=== PATIENT | male | born 1970 | race Two or more races ===

== ENCOUNTER 2021-06-25 12:41 | Emergency (ER) | payer SELFPAY ==
[~2021-06-25] VITALS: Ht 170.2 cm; Wt 90.7 kg
[2021-06-25 13:14] VITALS: BP 114/76
== END 2021-06-25 17:21 | disposition left against medical advice (07) ==
LOC: ER 12:41
DX: K62.5 Hemorrhage of anus and rectum (principal); Z53.21 Procedure and treatment not carried out due to patient leaving prior to being seen by health care provider